=== PATIENT | male | born 1965 | race Caucasian/White ===

== ENCOUNTER 2017-01-16 07:08 | Emergency (ER) | payer BC ==
[2017-01-16 07:55] VITALS: BP 158/89
[2017-01-16] MEDS ORDERED: Ipratropium 0.5MG/2.5ML NEB* 0.5 MG/2.5 ML NEB.SOLN INH ONE (07:58)
[2017-01-16] MEDS ORDERED: methylPREDNISolone 125 MG* 2 ML VIAL IM ONE (07:58)
[2017-01-16] MEDS ORDERED: Albuterol 2.5 MG/3 ML NEB.SOL* (0.083%) INH ONE (07:58)
[2017-01-16] MEDS ORDERED: methylPREDNISolone 125 MG* 2 ML VIAL ONE (08:03)
--- NOTE | 2017-01-28 09:16 | UC ---
Ashley Bernal Jason, scribed for Karissa Strong DO on 01/16/17 at 0753 . Shortness of Breath HPI - HPI Summary HPI Summary: This patient is a 51 year old M presenting to [facility] with a chief complaint of SOB since 1 week ago. The patient reports that yesterday he felt like he couldn t breathe and that painful coughing has been waking him up for the past week, describing the sx like one giant asthma attack. Additionally, the patient says he was recently seen by a physician and diagnosed with bronchitis and was prescribed Tessalon and a z-pack. The patient rates the pain 0/10 in severity. Symptoms aggravated by nothing. Symptoms alleviated by nothing. Patient denies sore throat, ear ache, nasal congestion, CP, dizziness, nausea, vomiting, and nasal drainage. - History of Current Complaint Chief Complaint: UCRespiratory Stated Complaint: COUGH SOB Time Seen by Provider: 01/16/17 07:49 Hx Obtained From: Patient Onset/Duration: Gradual Onset, Lasting Weeks - Since 1 week ago, Still Present Alleviating Factors: Nothing Associated Signs & Symptoms: Positive: Cough (Nonproductive) - Painful, Other - SOB. Patient denies sore throat, ear ache, congestion, CP, dizziness, nausea, vomiting, and nasal drainage. - Allergy/Home Medications Allergies/Adverse Reactions: Allergies Allergy/AdvReac Type Severity Reaction Status Date / Time Shellfish Allergy Allergy Anaphylatic Verified 01/06/17 18:25 Shock Home Medications: Home Medications Diphenhydramine-Acetaminophen [Tylenol Pm Extra Strength 500-25 mg] 01/16/17 [ History] diPHENhydraMINE PO* [Benadryl PO 25 MG TAB*] 01/16/17 [History] PMH/Surg Hx/FS Hx/Imm Hx Previously Healthy: Yes Cardiovascular History: Hypertension - Negative Respiratory History: Bronchitis - Surgical History Surgical History: Yes Surgery Procedure, Year, and Place: knee bilat,bilat hernia repair,melanoma right shoulder basal cell nose ta - Family History Known Family History: Negative: Hypertension, Diabetes - Social History Alcohol Use: Occasionally Substance Use Type: None Smoking Status (MU): Former Smoker Review of Systems ENT: Negative - Sore throat, ear ache, nasal congestion, nasal drainage Respiratory: Shortness Of Breath, Cough - Painful Cardiovascular: Negative - chest pain Gastrointestinal: Negative - nausea and vomiting All Other Systems Reviewed And Are Negative: Yes Physical Exam Triage Information Reviewed: Yes Vital Signs: Initial Vital Signs Temp 97.1 F 01/16/17 07:20 Pulse 96 01/16/17 07:20 Resp 16 01/16/17 07:20 BP 158/89 01/16/17 07:20 Pulse Ox 97 01/16/17 07:20 Vital Signs Reviewed: Yes - Additional Comments Appearance: Well-Appearing, No Pain Distress, Well-Nourished Eyes: conjunctiva clear, no discharge ENT: Hearing grossly normal, no muffled/hoarse voice. Neck: Normal, Supple Respiratory/Lung Sounds: No accessory muscle use. Mild respiratory distress. Diffuse wheezing in all crump, prolonged respiration in the bases. Cardiovascular: RRR, No murmur Abdomen (if she checks): Nontender, Soft, no guarding, not distended Bowel Sounds (if she checks): Present Musculoskeletal: Normal Neurological: Alert, muscle tone normal Psychiatric:Normal, age appropriate behavior Skin: Normal, Warm, Dry, Normal color Re-Evaluation - Re-Evaluation First Eval Re-Evaluation Time: 08:55 Change: Improved Comment: Patient reports improved ease of breathing. On auscultation wheezing is decreased but still diffusely present. Air movement is much improved and Breath sounds are symmetrical. There are no Rhonchi or rales. Shortness of Breath Dx - Course Course Of Treatment: This patient is a 51 year old M presenting to [facility] with a chief complaint of SOB since 1 week ago. The patient reports that yesterday he felt like he couldnt breathe and that painful coughing has been waking him up for the past week, describing the sx like one giant asthma attack. Additionally, the patient says he was recently seen by a physician and diagnosed with bronchitis and was prescribed Tessalon and a z-pack. The patient rates the pain 0/10 in severity. Symptoms aggravated by nothing. Symptoms alleviated by nothing. Patient denies sore throat, ear ache, nasal congestion, CP, dizziness, nausea, vomiting, and nasal drainage. High blood pressure noted. In the [facility] course the patient was given Albuterol, Ipratropium and methylprednisolone. Patient has reported improved ease of breathing after medications treatment. Patient will be discharged with prescription for Ventolin HFA inhaler, Mucinex, robitussin AC, and Deltasone TAB, and follow up from PCP. The patient is agreeable with this plan. Dx of Bronchospasm and post- viral cough. Elevated blood pressure without diagnosis of hypertension. - Differential Dx/Diagnosis Provider Diagnoses: Bronchospasm and post-viral cough. Elevated blood pressure without diagnosis of hypertension. Discharge - Discharge Plan Condition: Stable Disposition: HOME Prescriptions: Albuterol HFA INHALER* [Ventolin HFA Inhaler*] 2 puff INH Q4H PRN #1 mdi PRN Reason: Sob/Wheezing guaiFENesin ER TAB [Mucinex*] 600 mg PO BID PRN #1 box PRN Reason: Cough guaiFENesin/CODIEN 100MG-10MG* [Robitussin AC 100Mg-10Mg*] 5 - 10 ml PO BEDTIME PRN #100 udc MDD 10ml PRN Reason: Cough predniSONE TAB* [Deltasone TAB*] 40 mg PO DAILY #8 tab Patient Education Materials: Bronchospasm (ED) Forms: *Work Release Referrals: No Primary Care Phys,NOPCP [Primary Care Provider] - Additional Instructions: POST-VIRAL COUGH: A very common cause of persistent cough is called "post-viral cough syndrome." During a viral infection, the virus can irritate your bronchial tubes. Then even after the infection is over, you may continue to cough. Your cough is left over from your recent viral infection. You do not show evidence of a continuing viral infection,bronchitis or pneumonia. You do not need antibiotics at this time. It may be helpful to use inhaled cool mist, throat lozenges, cough medication or bronchial inhalers to open up your bronchial tubes. We expect you will be improved in a week or two. Please get back to us if you have fever, chest pain, colored sputum, blood in the sputum, wheezing or shortness of breath. INHALED BRONCHODILATORS: You have received a prescription for an inhaled bronchodilator -- a medication which stimulates the airways in the lung to dilate. This improves the flow of air in asthma, bronchitis, and emphysema. These medicines have some similarity to adrenaline, and can cause similar side effects: shakiness, racing heart, and a sense of nervousness. These side effects decrease with time. Contact your doctor if these side effects are severe. Do not over-use the medicine. Too-frequent use of the inhaler may make it ineffective. Call your doctor if the inhaler is not controlling your symptoms at the prescribed doses. COUGH-SUPPRESSANT & EXPECTORANT MEDICATION: You are to use a cough medication as needed for relief of symptoms. This medicine is a combination of an expectorant (to make the mucous thinner and more easily "coughed up") and a cough suppressant (to reduce the frequency of coughing). The cough-suppressant medicine is related to narcotics. You may experience mild nausea and sleepiness. Some patients who are very sensitive to narcotics may have stomach pain from this medicine. Taking the medicine with food reduces these side effects. Do not drive or work with machinery until you know how this medicine affects you. The expectorant should have no side effects. Iodine-containing expectorants (such as organidin) should not be taken by persons with active thyroid disease unless approved by your doctor. Call the doctor if you develop shortness of breath, hives, rash, itching, lightheadedness, or severe nausea and vomiting. EXPECTORANT MEDICATION: WE SENT IN A SCRIPT FOR MUCINEX SO THAT IT IS EASIER FOR YOU TO PICK THE RIGHT MED AT THE PHARMACY. HOWEVER, YOU CAN ALSO GO TO THE [facility] STORE AND BUY PLAIN GUAIFENESIN WITHOU BINDERS OR FILLERS. An expectorant medicine has been prescribed. This type of drug makes mucous thinner, helping the sinuses, nose, and bronchial tubes to remain free of pus and mucous. Expectorants make a cough less severe and more comfortable, and help infected sinuses drain. In general, antihistamines defeat the purpose of the expectorant by making mucous thicker. They should be avoided unless specifically recommended by your physician. Your blood pressure was elevated at this visit. That does not mean you have hypertension, it is probably due to your current condition. Please follow up with your primary care provider. CORTICOSTEROID MEDICATION: You have been given a medicine of the cortisone class. This medication is used to control inflammation or allergy. It is usually only given for a short period of time, until the acute process subsides. There are usually no side effects from short-term use of cortisone-like medications. Some persons feel an increased sense of well-being and are not sleepy at bedtime. Long-term use of cortisone medications is best avoided, unless required for a severe condition. If your condition does not remit, or relapses after the course of corticosteroid medication, you should consult your physician. Contact the physician if you develop lightheadedness, black or tarry stools , swelling of the legs, or significant rapid change in weight. ANYTIME YOU TAKE AN ANTIBIOTIC, IT IS IMPORTANT TO REPLENISH THE BODY'S SUPPLY OF "GOOD BACTERIA." YOU CAN GET GOOD BACTERIA FROM HIGH QUALITY CULTURED FOODS SUCH LOCAL YOGURT, SOUR KRAUT, MAC NISSA, NATURALLY FERMENTED PICKLES AND PROBIOTIC DRINKS. YOU CAN ALSO GET GOOD BACTERIA FROM A PROBIOTIC SUPPLEMENT. FOLLOW-UP CARE: You should establish with a private physician for follow-up care. If you are unable to get a timely appointment, or if you are worsening, call us or return for re-evaluation. An additional resource available to assist in finding the appropriate physician for your health care needs is the Physician Referral Center. You may contact them by calling [phone]. Your blood pressure was elevated at this visit. That does not mean you have hypertension, it is probably due to your current condition. Please follow up with your primary care provider. The documentation as recorded by the Ashley echeverria Jason accurately reflects the service I personally performed and the decisions made by me, Karissa Strong DO.
== END 2017-01-16 09:22 | disposition home or self-care (01) ==
LOC: UCEAST 07:08
DX: J98.01 Acute bronchospasm (principal); R05 Cough; R03.0 Elevated blood-pressure reading, without diagnosis of hypertension; Z87.891 Personal history of nicotine dependence
CPT/HCPCS: 96372; 99213; G0463; J2930; J7644

== ENCOUNTER 2017-02-22 16:07 | Emergency (ER) | payer BC ==
--- NOTE | 2017-02-22 18:21 | UC ---
Master Bernal Thomas, scribed for Lupe Wilson MD on 02/22/17 at 1815 . Respiratory Complaint HPI - HPI Summary HPI Summary: The patient is a 51 year old male presenting to Urgent Care complaining of a cough that has been present for the last month and a half. He has been wheezing during the night and has coughing fits as well. He was evaluated at Urgent Care twice in early January 2017 and was diagnosed with bronchitis and prescribed a Zpak and tessalon pearls. Pt states 3 days lever had sever coughing/wheezing spells and was given a duoneb, Rx an inhaler, and prednisone. Pt states continues with coughing paroxysms which have caused post-tussive vomiting. Pt denies fever or chills. The patient has treated the cough with his inhaler earlier today, which gives him instant relief. The cough has white production when he uses his inhaler. He has been taking cough syrup as well. Patient denies ear pain, sinus pressure, postnasal drip, sore throat, and diarrhea. He has been able to eat normally. His significant other, who he lives with, has been dealing with a similar symptoms. Pt did not change toothbrush and did not deploy secretion precautions. state at night, sx better when sits upright Patients medication reviewed this visit. - History of Current Complaint Chief Complaint: UCRespiratory Stated Complaint: URI Time Seen by Provider: 02/22/17 18:03 Hx Obtained From: Patient Onset/Duration: Lasting Weeks - 6, Still Present Timing: Intermittent Episodes Severity Currently: Moderate Character: Cough: Productive, Sputum Description: - white Aggravating Factors: Other - Night time Alleviating Factors: Other - Inhaler Associated Signs And Symptoms: Negative: Fever - Allergies/Home Medications Allergies/Adverse Reactions: Allergies Allergy/AdvReac Type Severity Reaction Status Date / Time Shellfish Allergy Allergy Anaphylatic Verified 02/22/17 16:57 Shock PMH/Surg Hx/FS Hx/Imm Hx Previously Healthy: No - Bronchititis; NEGATIVE: CAD, DM - Surgical History Surgical History: Yes Surgery Procedure, Year, and Place: knee bilat,bilat hernia repair,melanoma right shoulder basal cell nose ta - Family History Known Family History: Negative: Hypertension, Diabetes - Social History Occupation: Employed Full-time Lives: With Family Alcohol Use: Daily Substance Use Type: None Smoking Status (MU): Never Smoked Tobacco Review of Systems Respiratory: Cough, Other - Wheezing Gastrointestinal: Other - Dry heaving Is Patient Immunocompromised?: No All Other Systems Reviewed And Are Negative: Yes Physical Exam Triage Information Reviewed: Yes Appearance: Well-Appearing, No Pain Distress, Well-Nourished Vital Signs: Initial Vital Signs Temp 99.0 F 02/22/17 16:54 Pulse 95 02/22/17 16:54 Resp 18 02/22/17 16:54 BP 140/98 02/22/17 16:54 Pulse Ox 100 02/22/17 16:54 Vital Signs Reviewed: Yes Eye Exam: Normal Eyes: Positive: Conjunctiva Clear ENT Exam: Normal ENT: Positive: Normal ENT inspection, Hearing grossly normal, Pharynx normal, Other - scant fluid left TM turbinates boggy mild PND no exudate Dental Exam: Normal Neck exam: Normal Neck: Positive: Supple, Nontender, No Lymphadenopathy Respiratory Exam: Normal Respiratory: Positive: Chest non-tender, Lungs clear, Wheezing, Other: - + scattered wheeze L>R speaking full sentences Cardiovascular Exam: Normal Cardiovascular: Positive: RRR, No Murmur, Pulses Normal Abdominal Exam: Normal Abdomen Description: Positive: Nontender, No Organomegaly, Soft Bowel Sounds: Positive: Present Musculoskeletal Exam: Normal Musculoskeletal: Positive: Strength Intact Neurological Exam: Normal Psychological Exam: Normal Psychological: Positive: Normal Response To Family Skin Exam: Normal UC Diagnostic Evaluation - Laboratory O2 Sat by Pulse Oximetry: 100 Diagnostic Studies Comment: CXR. Interpreted by radiologist. Impression: NO ACTIVE DISEASE. Dr. Wilson has reviewed this report. Re-Evaluation - Re-Evaluation First Eval Re-Evaluation Time: 19:22 Change: Improved Comment: The patient's wheezing is completely resolved after the nebulizer treatment. Respiratory Course/Dx - Course Course Of Treatment: Blood pressure noted and patient informed of follow up with PCP. Pt with persistent productive cough x 3 weeks with coughing paroxysms improved with neb. Pt was treated with z pack 3 weeks ago. SO with similar sx. Will check CXR. duoneb and reassess - Differential Dx/Diagnosis Provider Diagnoses: cough Discharge - Discharge Plan Condition: Stable Disposition: HOME Prescriptions: Albuterol HFA INHALER* [Ventolin HFA Inhaler*] 1 puff INH Q4H PRN #1 mdi PRN Reason: wheeze DOXYcycline CAP(*) [DOXYcycline 100MG CAP(*)] 100 mg PO BID #14 cap Fluticasone NASAL SPRAY 50MCG* [Flonase NASAL SPRAY 50MCG*] 2 spray BOTH NARES DAILY #1 btl Guaifenesin-Codeine [Codeine/Guaifenesin 100-10 mg/5Ml] 1 jerry PO Q8HR PRN #50 jerry MDD 15 PRN Reason: Cough Prednisone 20 mg PO DAILY #11 tab Patient Education Materials: Wheezing (ED) Referrals: No Primary Care Phys,NOPCP [Primary Care Provider] - Additional Instructions: - sTay well hydrated. Drink plenty of non-alcohol beverage, non-caffinated beverages - Take prednisone and antibiotics as prescribed until gone - Use inhaler 2 puffs every 4 hours tomorrow and Thur, then every 4 hours as needed - Use nasal spray as prescribed - Okay to take over the counter cough medication. Also okay to take Robitussin with codeine at night. Do NOT drive, operate machinery or drink alcohol while taking codeine. this medication may cause constipation - use a stool softner as needed - - After you have been on antibiotics for 2 days - change your toothbrush and your pillowcase. These infections are spread by secretions - do NOT share eating or drinking utensils - clean items you share with other people such as cell phones, computer mouse, TV remote, computer tablets, etc Contact your doctor or return with questions or concerns The documentation as recorded by the Master echeverria Thomas accurately reflects the service I personally performed and the decisions made by me, Lupe Wilson MD.
[2017-02-22] MEDS: Albuterol/Ipratropium NEB.SOL* Albuterol 2.5 MG/Ipratropium 0.5 MG 3 ML INH ONE (18:37)
--- NOTE | 2017-02-22 18:46 | RAD ---
INDICATION: Cough COMPARISON: January 06, 2017 TECHNIQUE: PA and lateral dual-energy views were obtained. FINDINGS: Bones/Soft Tissues: There are no acute bony findings. Cardiomediastinal: The cardiomediastinal silhouette is normal. Lungs: There are no infiltrates. Pleura: There are no pleural effusions. Other: None IMPRESSION: NO ACTIVE DISEASE.
[2017-02-22 18:59] VITALS: BP 140/98
== END 2017-02-22 19:24 | disposition home or self-care (01) ==
LOC: UCEAST 16:07
DX: R05 Cough (principal); R06.2 Wheezing
CPT/HCPCS: 71020; 99212; A9270-GY; G0463